=== PATIENT | male | born 1990 | race Caucasian/White ===

== ENCOUNTER 2021-09-08 18:12 | Emergency (ER) | payer MEDICAID ==
[~2021-09-08] VITALS: Ht 180.3 cm; Wt 108.9 kg
--- NOTE | 2021-09-08 18:15 | NUR ---
Patient to ER lobby. MD made aware and pt waiting in lobby until bed becomes available.
[2021-09-08 18:24] VITALS: BP_SYST 123
--- NOTE | 2021-09-08 20:11 | NUR ---
AT THE CHAIR FOR PT EVALUATION
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
[2021-09-08 20:14] VITALS: BP_SYST 121
[2021-09-08] MEDS ORDERED: IBUP-1969 PO (20:44)
--- NOTE | 2021-09-08 20:51 | NUR ---
PT PROVIDED WITH DISCHARGE INSTRUCTIONS AND SLING WITH PRESCRIPTION. PT ENCOURAGED TO WEAR SLING FOR 2 WEEKS AND TO FOLLOW UP WITH PRIMARY CARE PHYSICIAN. PT VERBALIZED UNDERTANDING. PT DISCHARGED WITH ALL BELONGINGS, AMBULATORY IN STABLE CONDITION.
== END 2021-09-08 20:53 | disposition home or self-care (01) ==
LOC: SED 18:12
DX: S43.401A Unspecified sprain of right shoulder joint, initial encounter (principal); S40.011A Contusion of right shoulder, initial encounter; V29.9XXA Motorcycle rider (driver) (passenger) injured in unspecified traffic accident, initial encounter; Y93.89 Activity, other specified; Y92.89 Other specified places as the place of occurrence of the external cause; Y99.8 Other external cause status
CPT/HCPCS: 73030; 99282; 99283; 99284

== ENCOUNTER 2021-09-23 11:42 | Emergency (ER) | payer MEDICAID ==
[~2021-09-23] VITALS: Ht 180.3 cm; Wt 104.3 kg
[~2021-09-23 11:42] MED LIST: IBUP-1969 PO
[2021-09-23 11:50] VITALS: BP_SYST 143
--- NOTE | 2021-09-23 11:50 | NUR ---
Patient to ER bed #3 to gown for evaluation. Side rails up. Myself Rachel ZUNIGA assumed care of pt. Pt is A&OX4. Pt coming from home ambulatory with steady gait. Pt c/o having a hemorrhoid in buttock since Monday and rates pain 10/10 non-radiating. States he has had a hemorrhoid before. NKA. No known medical conditions. Has had a appendectomy. VSS. Bed in lowest position.
--- NOTE | 2021-09-23 12:20 | NUR ---
ER at bedside examining patient.
[2021-09-23] MEDS ORDERED: LIDOCAINE 1% 10 MG/ML, 20 ML MDV INJ ONE (12:30)
[2021-09-23] MEDS ORDERED: CEPH-548 PO (12:51)
[2021-09-23] MEDS ORDERED: TRAM50TA PO (12:51)
[2021-09-23 13:12] VITALS: BP_SYST 124
--- NOTE | 2021-09-23 13:20 | NUR ---
Patient given written and verbal discharge instructions and verbalizes understanding. ER MD discussed with patient the results and treatment provided. Patient in stable condition. ID arm band removed. IV catheter removed intact and dressing applied, no active bleeding. Rx of Cephalexin & Tramadol given. Patient educated on pain management and to follow up with PMD. Pain Scale . Opportunity for questions provided and answered. Medication side effect fact sheet provided.
== END 2021-09-23 13:12 | disposition home or self-care (01) ==
LOC: SED 11:42
DX: L02.31 Cutaneous abscess of buttock (principal)
CPT/HCPCS: 99283